=== PATIENT | male | born 1950 | race Caucasian/White ===

== ENCOUNTER 2017-12-11 10:17 | Inpatient (IN) | payer OTHER, MEDICARE ==
[2017-12-11] MEDS: DILTIAZEM 25 MG INJ IV (10:42)
[2017-12-11] MEDS: DILTIAZEM 30 MG TAB PO (10:59)
[2017-12-11 11:13] LABS: ADD MAN DIFF? NO
[2017-12-11 11:14] LABS: WHITE BLOOD COUNT 7.4 10^3/ul (4.8-10.8)
[2017-12-11 11:14] LABS: BASOPHILS % 0.5 % (0.0-2.0); EOSINOPHILS % 0.3 % (0.0-7.0); HEMATOCRIT 48.1 % (42.0-52.0); HEMOGLOBIN 16.9 g/dl (14.0-18.0); LYMPHOCYTES # 1.8 10^3/ul (0.8-2.9); LYMPHOCYTES % 24.3 % (15.0-51.0); MEAN CORPUSCULAR HEMOGLOBIN 30.6 pg (29.0-33.0); MEAN CORPUSCULAR HGB CONC 35.1 g/dl (32.0-37.0); MEAN PLATELET VOLUME 9.7 fl (7.4-10.4); MONOCYTE # 0.5 10^3/ul (0.3-0.9); MONOCYTES % 6.9 % (0.0-11.0); NEUTROPHILS % 67.5 % (39.0-77.0); PLATELET COUNT 201 10^3/UL (140-415); RED BLOOD COUNT 5.53 10^6/ul (4.70-6.10); RED CELL DISTRIBUTION WIDTH 12.9 % (11.5-14.5)
[2017-12-11 11:31] LABS: ANION GAP 14 (8-16); BLOOD UREA NITROGEN 17 mg/dl (7-20); CARBON DIOXIDE 21 mmol/L (21-31); CHLORIDE 108 mmol/L (97-110); CREATININE 1.11 mg/dl (0.61-1.24); GLUCOSE 129 mg/dl (70-220); SODIUM 139 mmol/L (135-144)
[2017-12-11 11:43] LABS: TROPONIN-I < 0.012 ng/ml (0.000-0.120)
[2017-12-11] MEDS ORDERED: ONDANSETRON 4 MG INJ IV ×2 (12:00→14:00)
[2017-12-11] MEDS ORDERED: ACETAMINOPHEN 325 MG TAB PO ×2 (12:00→14:00)
[2017-12-11] MEDS: ONDANSETRON 4 MG INJ IV (13:02)
[2017-12-11] MEDS: KETOROLAC 30 MG INJ IV (13:02)
[2017-12-11] MEDS ORDERED: morphine 2 MG INJ IV (14:00)
[2017-12-11] MEDS ORDERED: HYDROCODONE/APAP (5/325) TAB PO ×2 (14:00)
[2017-12-11] MEDS ORDERED: MAGNESIUM HYDROXIDE 30ML CUP PO (14:00)
[2017-12-11] MEDS ORDERED: ACETAMINOPHEN 650 MG SUPP PR (14:00)
[2017-12-11] MEDS ORDERED: BISACODYL 10 MG SUPP PR (14:00)
[2017-12-11] MEDS ORDERED: NACL 0.9% 3 ML SYG IV (14:00)
[2017-12-11] MEDS ORDERED: DOCUSATE SODIUM 100 MG CAP PO (14:00)
[2017-12-11 14:41] LABS: CREATINE KINASE 92 IU/L (23-200)
[2017-12-11 14:55] LABS: CK INDEX 1.1; CK-MB 1.04 ng/ml (0.0-2.4); TROPONIN-I < 0.012 ng/ml (0.000-0.120)
[2017-12-11] MEDS: METOPROLOL 25 MG TAB PO ×2 (15:25→17:43)
[2017-12-11] MEDS: APIXABAN 5 MG TABLET PO (20:17)
[2017-12-11 21:00] LABS: CREATINE KINASE 89 IU/L (23-200)
[2017-12-11 21:13] LABS: CK INDEX 1.2; CK-MB 1.04 ng/ml (0.0-2.4); TROPONIN-I < 0.012 ng/ml (0.000-0.120)
[2017-12-12] MEDS: METOPROLOL 25 MG TAB PO ×3 (00:37→13:42)
[2017-12-12 03:09] LABS: CREATINE KINASE 87 IU/L (23-200)
[2017-12-12 03:21] LABS: CK INDEX 1.4; CK-MB 1.23 ng/ml (0.0-2.4); TROPONIN-I < 0.012 ng/ml (0.000-0.120)
[2017-12-12 05:24] LABS: ALANINE AMINOTRANSFERASE 22 IU/L (13-69); ALBUMIN 4.3 g/dl (3.3-4.9); ALBUMIN/GLOBULIN RATIO 1.22; ALKALINE PHOSPHATASE 84 IU/L (42-121); ANION GAP 13 (8-16); ASPARTATE AMINO TRANSFERASE 28 IU/L (15-46); BILIRUBIN,INDIRECT 0.8 mg/dl (0-1.1); BILIRUBIN,TOTAL 0.8 mg/dl (0.2-1.3); BLOOD UREA NITROGEN 18 mg/dl (7-20); CALCIUM 9.2 mg/dl (8.4-10.2); CARBON DIOXIDE 27 mmol/L (21-31); CHLORIDE 105 mmol/L (97-110); CHOL/HDL RATIO 6.2 RATIO; CHOLESTEROL 214 mg/dl (100-200); CREATININE 1.16 mg/dl (0.61-1.24); GLUCOSE 113 mg/dl (70-220); HDL CHOLESTEROL 34 mg/dl (30-78); LDL CHOLESTEROL,CALCULATED 145 mg/dl; MAGNESIUM 2.1 mg/dl (1.7-2.5); PHOSPHORUS 3.6 mg/dl (2.5-4.9); SODIUM 141 mmol/L (135-144); TOTAL PROTEIN 7.8 g/dl (6.1-8.1); TRIGLYCERIDES 175 mg/dl (0-149)
[2017-12-12 05:40] LABS: FREE THYROXINE INDEX (Calc) 2.49 ug/ml (0.65-3.89); T3 UPTAKE 35.6 % (23.5-40.5)
[2017-12-12] MEDS ORDERED: PANTOPRAZOLE 40 MG INJ IV (06:00)
[2017-12-12 06:40] LABS: HEMOGLOBIN A1C 6.1 % (0-5.9)
[2017-12-12] MEDS: PANTOPRAZOLE (EC) 40 MG TAB PO (07:01)
[2017-12-12] MEDS: APIXABAN 5 MG TABLET PO (08:23)
[2017-12-12] MEDS: AMLODIPINE 2.5 MG TAB PO (08:23)
== END 2017-12-12 14:40 | disposition home or self-care (01) | DRG 310 ==
LOC: E/R 10:17 → 6WM 11:54
DX: I48.91 Unspecified atrial fibrillation (principal); I10 Essential (primary) hypertension; E11.9 Type 2 diabetes mellitus without complications
CPT/HCPCS: 36415; 71045; 80048; 80053; 80061; 82550; 82553; 83036; 83735; 84100; 84436; 84443; 84479; 84484; 85025; 93005; 93306; 96374; 99291-25